=== PATIENT | female | born 1935 | race Caucasian/White ===

== ENCOUNTER → 2016-07-15 | Day surgery (SDC) | payer MEDICARE, OTHER ==
[~2016-07-15] MED LIST: BUPIVACAINE HCL PF 0.5% 10 ML VIAL ONE; CLINDAMYCIN PHOS 900 MG/6 ML VIAL ONE; ISOSULFAN BLUE 50 MG/5 ML VIAL SQ ONE; KETOROLAC TROMETHAMINE 30 MG/ML (IVP) VIAL IV PUSH ONE; LACTATED RINGER'S 1000 ML INJ 1,000 ML ONE; MIDAZOLAM HCL 2 MG/2 ML VIAL ONE; ONDANSETRON HCL 4 MG/2 ML VIAL IV PUSH ONE; PROPOFOL 200 MG/20 ML AMP IV ONE; SODIUM CHLORIDE 0.9% INJ 10 ML ONE; ceFAZolin INJ 1,000 MG VIAL ONE
--- NOTE | 2016-07-15 13:27 | TN ---
cc: EVELIA VELASCO DATE OF SURGERY 07/15/2016 PRINCIPAL DIAGNOSIS Right breast cancer ATTENDING PHYSICIAN Evelia Velasco MD HISTORY OF PRESENT ILLNESS The patient is an 80-year-old female with a newly diagnosed less than 1 cm right breast cancer. She now presents for definitive surgical therapy. FINDINGS AT THE TIME OF SURGERY Six sentinel lymph nodes were identified. #1 had a count of 1517 and was 1+ blue. #2 had a count of 312 and #3 had a count of 276 and both were 1+ blue. #4 was 59 and was not blue, #5 was 55 and was 1+ blue, and #6 was 49 and not blue. Touch prep analysis was not performed. Specimen mammogram did demonstrate an intact wire and the biopsy clip and lesion were present. PROCEDURE PERFORMED After informed consent was obtained and site verification was performed, the patient was brought to the radiology suite where she underwent peritumoral radionuclide injection, as well as ultrasound-guided needle localization of her lesion. She was then brought to the major operating room where she underwent general anesthesia via LMA device. She was given a single dose of clindamycin due to penicillin allergy and sequential compression hose were placed. Two cc of half-strength Lymphazurin were injected in the subareolar right breast and a 5-minute massage was performed. The right breast and arm were then prepped and draped in sterile fashion. A skin incision was anesthetized at the inferior aspect of the right axillary hairline and both sharp and electrocautery dissection were performed until the level one axilla was identified. Three mid level one sentinel nodes were identified and circumferentially dissected free from surrounding structures with the counts as noted and these were between 49 and 59. However in the axillary tail of [facility], some palpable adenopathy was identified and three additional lymph nodes were removed from this region which were all 1+ blue with higher counts. Each of these nodes was dissected circumferentially from surrounding tissue using the harmonic scalpel with the counts as noted. Touch prep analysis was not performed and all six nodes were sent for permanent pathologic evaluation. Good hemostasis was noted and the wound was closed using interrupted 3-0 Vicryl subcutaneous sutures and a 4-0 Monocryl subcuticular suture. Attention was then turned to the right breast where the lesion was identified at 11 o'clock 3 cm from the nipple. A periareolar skin incision was anesthetized and incised sharply. Further sharp and blunt dissection was performed until the wire entry point through the skin was identified and secured with a hemostat. The wire was cut off at the skin with pin cutters and sharp and electrocautery dissection was then performed circumferentially around the wire. A 2-0 silk retention suture was placed at the wire entry point into the breast tissue and these two sutures became the lateral margin. A single long suture was used to orient the anterior margin and a short suture was used to anai the superior margin. The specimen was removed and inspected in the anterior and superior margin appeared close. The lumpectomy specimen was then sent to mammography with the findings as noted and was then sent for permanent pathologic evaluation. The anterior and superior margins were each sharply reexcised and sent as separate specimens with a stitch on the new margins. Hemostasis was easily obtained with electrocautery and all sponge and needle counts were noted to be correct. The wound was closed using interrupted 3-0 Vicryl subcutaneous sutures and a 4-0 Monocryl subcuticular suture. Steri-Strips and sterile dressing were applied. The patient tolerated the procedure well with an estimated blood loss of 50 cc and she was extubated in the operating room and brought to recovery room in good condition. All sponge and needle counts were correct at the conclusion of the case. MD LASHON Shay/REINIER /1:01 PM /1:18 PM PEDRO
== END | disposition home or self-care (01) ==
LOC: ESDC 06:57
PROVIDERS: ATTEND Surgery
DX: C50.911 Malignant neoplasm of unspecified site of right female breast (principal)
CPT/HCPCS: 00400; 01610; 19125; 38525; 38792; 88305; 88307; J0690; J1885; J2250; J2405; J3010; J7120; Q9968

== ENCOUNTER → 2016-08-05 | Day surgery (SDC) | payer MEDICARE, OTHER ==
--- NOTE | 2016-07-29 17:29 | MH ---
cc: EVELIA VELASCO DATE OF ADMISSION 08/05/2016 HISTORY OF PRESENT ILLNESS The patient is an 80-year-old female who is status post a right breast needle-localized lumpectomy and sentinel lymph node biopsy on July 15, 2016 for clinical stage I right breast cancer. Final pathology demonstrated six sentinel lymph nodes and two contained metastatic carcinoma with extranodal extension. Four other sentinel lymph nodes were negative and an additional non sentinel lymph node was also negative. 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 The invasive carcinoma extended to the superior margin, but this was re-excised and the new margin was negative. DCIS was less than a millimeter from the new anterior margin. I have recommended anterior margin re-excision and the patient and family will consult with Dr. Israel to discuss the role of adjuvant chemotherapy, since her tumor is HER2/raymond amplified and she is node positive. She now presents for the re-excision. ALLERGIES PENICILLIN PREDNISONE CODEINE MEDICATIONS Current, 1. Calcium. 2. Lisinopril 20 mg twice daily. 3. Omeprazole 20 mg daily p.r.n. PAST MEDICAL HISTORY 1. Gastroesophageal reflux 2. Hypertension. PAST SURGICAL HISTORY ES Breast surgery as described above. PHYSICAL EXAMINATION VITAL SIGNS: She is alert and oriented x3 and in no acute distress. She is 5 feet 2 inches and weighed 136 pounds with a BMI of 24.9. Blood pressure was 175/98, temperature 98, heart rate 84, respirations 18. HEENT: Exam was unremarkable. NECK: Supple with no adenopathy or thyromegaly. CHEST: Clear. CARDIAC: Normal S1-S2 with no murmurs, rubs or gallops. BREASTS: A healing upper outer periareolar right breast scar and axillary scar with a mild seroma. There was no lymphedema or evidence of infection. ABDOMEN: Exam was unremarkable. IMPRESSION Ms. Mata has a very close anterior margin and I have recommended re-excision. She will also discuss the role of adjuvant chemotherapy and Herceptin with Dr. Israel and make a decision about port placement at the time of her margin re-excision. Evelia Velasco MD [place]/ /4:43 PM /5:10 PM
[~2016-08-05] MED LIST changes: -ISOSULFAN BLUE 50 MG/5 ML VIAL SQ ONE; +PROPOFOL 100 MG/10 ML INJ IV ONE; -PROPOFOL 200 MG/20 ML AMP IV ONE; -SODIUM CHLORIDE 0.9% INJ 10 ML ONE; +SODIUM CHLORIDE 0.9% INJ 100 ML IV ONE; -ceFAZolin INJ 1,000 MG VIAL ONE
--- NOTE | 2016-08-05 10:32 | TN ---
cc: EVELIA VELASCO DATE OF SURGERY 08/05/2016 PRINCIPAL DIAGNOSIS Right breast cancer with positive anterior margin. POSTOPERATIVE DIAGNOSIS Right breast cancer with positive anterior margin. PROCEDURE PERFORMED Re-excision of right breast anterior margin. SURGEON Evelia Velasco MD ANESTHESIA General via LMA device. 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 She has seen medical oncology, but elected not to proceed with adjuvant chemotherapy and now presents for re-excision of her right breast anterior margin. FINDINGS AT THE TIME OF SURGERY The right breast lumpectomy cavity was easily identified and there was no gross evidence of residual disease. A moderate lumpectomy seroma which was noninfected was also noted. PROCEDURE PERFORMED After informed consent was obtained and site verification was performed, the patient was brought to the major operating room where she underwent general anesthesia via an LMA device. She was given a single dose of IV clindamycin due to penicillin allergy and sequential compression hose were placed. The right breast was prepped and draped in a sterile fashion. 0.5% Marcaine plain was used to infiltrate the previous periareolar scar and sharp dissection was performed until the lumpectomy cavity was identified. The anterior margin was sharply demarcated and reexcised with stitches on the new margin. This was sent as a single specimen container. The previous seroma was aspirated and hemostasis was easily obtained with electrocautery. The wound was closed using interrupted 3-0 Vicryl subcutaneous sutures and a 4-0 Monocryl subcuticular suture. Steri-Strips and a sterile dressing were applied. The patient tolerated the procedure well with minimal blood loss. She was extubated in the operating room and brought to recovery room in good condition. MD LASHON Shay/REINIER /10:10 AM /10:20 AM
== END | disposition home or self-care (01) ==
LOC: ESDC 07:01
PROVIDERS: ATTEND Surgery
DX: C50.911 Malignant neoplasm of unspecified site of right female breast (principal)
CPT/HCPCS: 00400; 19301; 88307; 88341; 88342; J1885; J2250; J2405; J3010; J7120